=== PATIENT | male | born 1985 | race Hispanic/Latino ===

== ENCOUNTER 2019-07-12 13:11 | Emergency (ER) | payer BC, SELFPAY ==
[2019-07-12 13:22] VITALS: BP 160/96; PULSE 72; RESP 16; TEMP 36.8; O2SAT 99
--- NOTE | 2019-07-12 13:37 | ED.GENADULT ---
HPI - General Adult General Chief complaint: Upper Respiratory Infection Stated complaint: cough rt ear ringing Time Seen by Provider: 07/12/19 13:37 Source: patient and RN notes reviewed Mode of arrival: ambulatory Limitations: no limitations History of Present Illness HPI narrative: 34-year-old male presents with complaints of upper respiratory infection, facial congestion, facial tenderness, and cough, for the past 14 days. TheraFlu, DayQuil, and NyQuil without relief. No facial swelling. Dry cough/intermittent productive cough (green phlegm). Nasal congestion. No rhinorrhea. No chest pain or shortness of breath. No exacerbating factors. Denies fever or chills. Denies nausea, vomiting, and abdominal pain. Tolerating po intake well. Remains active. Complains of right ear tinnitus, fullness/clogged feeling for 14 days. TheraFlu, DayQuil, and NyQuil without relief. No difficulty hearing. Denies pain in ears, itching, injury, or drainage from ears. Denies history of cerumen impaction or ear problem and diseases. Denies fever or chills. URI symptoms as mention above. Denies nausea, vomiting, or abdominal pain. Denies dizziness, lightheadedness, fainting, or syncopal episodes. Some parts of this dictation were generated by voice recognition software and may contain typographical and/or grammatical inaccuracies. Related Data Allergies Allergy/AdvReac Type Severity Reaction Status Date / Time No Known Allergies Allergy Verified 07/12/19 13:14 Review of Systems Review of Systems: Narrative: CONSTITUTIONAL: Denies fever, chills, sweats. EYES: Denies visual changes, redness, discharge. ENT: Complains of congestion, RT ear tinnitus, facial congestion and tenderness. Denies otalgia, rhinorrhea, sore throat. CARDIOVASCULAR: Denies chest pain, palpitations, edema. RESPIRATORY: Denies dyspnea, wheezing. Complains of dry cough/intermittent productive. GASTROINTESTINAL: Denies abdominal pain, nausea, vomiting, diarrhea. GENITOURINARY: Denies dysuria, hematuria, abnormal discharge. SKIN: Denies rash or itching. MUSCULOSKELETAL: Denies acute back pain, joint pain, or myalgia. NEUROLOGIC: Denies numbness or focal weakness. PSYCHIATRIC: Denies anxiety or depression. All systems reviewed & are unremarkable except as noted in HPI and below. PMFSH Past Medical History Medical History (Updated 07/13/19 @ 00:01 by Natalie Almanza) No significant past medical history Surgical History Surgical History (Updated 07/12/19 @ 14:01 by RICKY Rojo) No significant past surgical history Family History Family History (Updated 07/12/19 @ 14:02 by RICKY Rojo) Father Diabetes mellitus Hypertension Mother Diabetes mellitus Hypertension Social History Social History (Updated 07/12/19 @ 14:02 by RICKY Rojo) Smoking status: Never smoker Second hand tobacco smoke exposure: No Substance use: never Gender identity (if verbalized by the patient): Male Comments At time of signature, agree with nurse past medical, surgical, social, and family history. There is no relevant family history pertinent to the presenting complaint. Exam Narrative: Exam Narrative: GENERAL: This is a well-nourished, well-developed patient, in no apparent distress. Talks in full sentences and ambulates with steady gait without dyspnea. HEAD: normocephalic, atraumatic. EYES: PERRL. Sclera clear/white. Vision is grossly intact. EARS: External ears normal, auditory canals clear and without drainage, LT TM normal without perforation. Unable to visualize RT TM due to large amount of cerumen, will attempt to remove see procedure section please. Hearing grossly intact. NOSE: External nose normal with no obvious nasal discharge, nares with moderate redness and enlarged turbinates, clear rhinorrhea. SINUSES: Mild tenderness upon palpation to maxillary and frontal sinuses. THROAT: Mucous membranes moist, posterior
== END 2019-07-12 14:14 | disposition home or self-care (01) ==
PROVIDERS: Emergency Provider Nurse Practitioner Family; PCP Family Medicine
DX: J00 Acute nasopharyngitis [common cold] (principal); J20.9 Acute bronchitis, unspecified; H61.21 Impacted cerumen, right ear
CPT/HCPCS: 99213; A9270; G0463

== ENCOUNTER 2022-06-01 08:27 | Emergency (ER) | payer BC, SELFPAY ==
[2022-06-01 08:36] VITALS: BP 153/104; PULSE 92; RESP 16; TEMP 37.2; O2SAT 99
--- NOTE | 2022-06-01 08:56 | ED.URI ---
HPI - URI/Sore Throat General Chief Complaint: Upper Respiratory Infection Stated Complaint: sore throat Time Seen by Provider: 06/01/22 08:56 History of Present Illness HPI Narrative: 37-year-old male presented for complaint of sinus congestion and ear pressure for one week. Took robitussin, states it made symptoms worse. Started with sore throat yesterday. Son diagnosed with strep yesterday. Not vaccinated for flu. Denies shortness of breath, wheezing, nausea, vomiting, diarrhea, fevers or chills at this time. Related Data Allergies Allergy/AdvReac Type Severity Reaction Status Date / Time No Known Allergies Allergy Verified 06/01/22 08:47 Review of Systems Review of Systems: [facility] Past Medical History Medical History COVID-19 Morbid (severe) obesity due to excess calories No significant past medical history Surgical History Surgical History No significant past surgical history Family History Family History Father Diabetes mellitus Hypertension Gastritis IBS (irritable bowel syndrome) Mother Hypertension Diabetes mellitus Sibling Hyperlipidemia COVID-19 Social History Social History Second hand tobacco smoke exposure: No Alcohol intake: current Substance use: never Substance use type: does not use 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 EYES: conjunctivae clear ENT: Mucous membranes moist. TMs pearly krishnamurthy with normal light reflex bilaterally; no tragal tenderness. Oropharynx erythematous Tonsils enlarged 3+ without exudate. No drooling, no hoarseness, no trismus, uvula midline. No tripod positioning, hot potato voice, or soft palate swelling. NECK: Supple. No lymphadenopathy CHEST: Clear to auscultation, breath sounds equal. HEART: Regular rate and rhythm. No murmur heard. SKIN: Warm, dry, no rash. NEURO: Alert and oriented x3. Course Course Emergency Course: Patient is aware of diagnosis, understands and agrees to treatment plan. Anticipatory guidance given. Patient agrees to follow-up as directed and is aware of reasons to seek care at the emergency department. Portions of this record may have been created with voice recognition software Level of Care: Express Care Visit Vital Signs Vital signs: Vital Signs Temperature 98.9 F 06/01/22 08:36 Pulse Rate 92 06/01/22 08:36 Respiratory Rate 16 06/01/22 08:36 Blood Pressure 153/104 H 06/01/22 08:36 Pulse Oximetry 99 06/01/22 08:36 Oxygen Delivery Room Air 06/01/22 08:36 Temperature 98.9 F 06/01/22 08:36 Pulse Rate 92 06/01/22 08:36 Respiratory Rate 16 06/01/22 08:36 Blood Pressure 153/104 H 06/01/22 08:36 Pulse Oximetry 99 06/01/22 08:36 Oxygen Delivery Room Air 06/01/22 08:36 MDM - URI/Sore Throat MDM Narrative Medical decision making narrative: Due to lack of resources, unable to test for rapid strep at this time. Patient verbalizes understanding. Will treat based on PE and known exposure. Advised supportive measures and signs and symptoms to go to the ER. Patient is appropriate for outpatient treatment and follow-up. Differential Diagnosis Differential diagnosis: Likely upper respiratory infection, viral infection and pharyngitis Discharge Plan Discharge Clinical Impression: Pharyngitis Patient Disposition: Home, Self-Care Condition: Stable Additional Instructions: - Take the antibiotic as directed. Fever and sore throat typically resolve within one to three days. Most patients can return to work after 12 to 24 hours of antibiotic therapy, provided you are fever free and
== END 2022-06-01 09:16 | disposition home or self-care (01) ==
PROVIDERS: Emergency Provider Nurse Practitioner Family; PCP Family Medicine
DX: J02.9 Acute pharyngitis, unspecified (principal); E66.01 Morbid (severe) obesity due to excess calories; Z68.43 Body mass index [BMI] 50.0-59.9, adult; Z86.16 Personal history of COVID-19
CPT/HCPCS: 99213; G0463

== ENCOUNTER 2022-08-22 08:48 | Emergency (ER) | payer BC, SELFPAY ==
--- NOTE | ~2022-08-22 | CT_ITS ---
EXAMINATION: CT abd pelvis lumbar wo con DATE: 08/22/2022 10:30 INDICATION: Abdomen and back pain TECHNIQUE: Computed tomography (CT) of the abdomen, pelvis and lumbar spine was performed without int ravenous contrast. The dose-length product was 1662.44 mGy-cm. Automated exposure control and iterati ve reconstruction technique were employed. COMPARISON: CT dated 01/24/2014. FINDINGS: Lung bases are unremarkable. Heart size normal. No significant pleural or pericardial effus ion. No significant vascular abnormality. No lymphadenopathy. Fatty infiltration of the liver. Gallbladder is present. The spleen, pancreas, adrenal glands and kid neys are unremarkable. Small fat-containing umbilical hernia. No free air or free fluid. Nonobstructi ve bowel pattern. No abnormal pelvic masses or fluid collections. Lumbar spine: There is mild annular disc bulging with dorsal osteophytosis at L3-4. There is mild too tral canal stenosis. There is annular disc bulging and dorsal osteophyte formation at L4-5 without si gnificant spinal stenosis. Mild annular disc bulging at L5-S1 with bilateral facet hypertrophy causin g mild bilateral neural foraminal stenosis. There is disc narrowing at L3-4 through L5-S1. No acute f racture or traumatic malalignment. IMPRESSION: 1. No acute abdominal abnormality. 2: Mild lumbar spondylosis with bilateral neural foraminal narrowing at L5-S1 and mild central canal stenosis at L3-4. 2: Hepatic steatosis. Reviewed, dictated and finalized at location A.
[2022-08-22 08:48] VITALS: BP 186/100; PULSE 85; RESP 16; TEMP 36.4; O2SAT 98
--- NOTE | 2022-08-22 09:54 | ED.BACK ---
HPI - Back Pain/Injury General Chief Complaint: Back Pain/Injury Stated Complaint: back pain Time Seen by Provider: 08/22/22 09:41 History of Present Illness HPI Narrative: 37 y/o M reports for right sided mid/low back pain x3 weeks. Pt reports the pain feels like something is there , has been worsening with time, and the pain is keeping him up at night. He reports he went to his PCP last week for eveluation of back pain, had UA checked that was normal, and sent home. Pt here today because the pain has progressively worsened, and is starting to radiate into his right abdomen. Denies paresthesias, weakness, bowel or bladder control or retention, saddle anesthesia, fever, body aches, chills, history of IV drug use, history of cancer, n/v/d, hematuria, dysuria, urinary frequency or urgency. Pt has a follow up apt with PCP next week. He reported to the ED today requesting imaging. Related Data Allergies Allergy/AdvReac Type Severity Reaction Status Date / Time No Known Allergies Allergy Verified 08/22/22 08:50 Review of Systems Review of Systems: CONSTITUTIONAL: Denies fever, chills EYES: Denies visual changes, redness, or discharge. ENT: Denies rhinorrhea, congestion, sore throat, or otalgia. CARDIOVASCULAR: Denies chest pain, palpitations, or edema. RESPIRATORY: Denies cough or dyspnea. GASTROINTESTINAL: Denies nausea, vomiting, or diarrhea. GENITOURINARY: Denies dysuria or hematuria. SKIN: Denies rash or itching. MUSCULOSKELETAL: Denies joint pain, or myalgia. NEUROLOGIC: Denies headache, numbness, dizziness, or weakness. PSYCHIATRIC: Denies anxiety or depression. [facility] Past Medical History Medical History COVID-19 Morbid (severe) obesity due to excess calories No significant past medical history Surgical History Surgical History No significant past surgical history Family History Family History Father Diabetes mellitus Hypertension Gastritis IBS (irritable bowel syndrome) Mother Hypertension Diabetes mellitus Sibling Hyperlipidemia COVID-19 Social History Social History Smoking status: Never smoker Second hand tobacco smoke exposure: No Alcohol intake: current Substance use: never Substance use type: does not use Living arrangements: with family Occupation/Education: occupation 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 HEAD: Normocephalic, atraumatic. EYES: PERRLA and EOMI. ENT: Nares clear, no rhinorrhea or epistaxis. Mucous membranes moist. Oropharynx without tonsillar hypertrophy exudate or other lesions. NECK: Supple. No adenopathy or masses. No nuchal rigidity. BACK: No midline vertebral tenderness, step offs or deformity. Point paraspinous tenderness to R low/mid back. No CVA tenderness. No palpable masses of deformities. No pain with back flexion or extension. Pain elicited with left rotation. No overlying skin changes. CHEST: Clear to auscultation. No respiratory distress. No wheezes rales or rhonchi HEART: Regular rate and rhythm. No murmur heard. Normal peripheral pulses. ABDOMEN: Soft, nontender, nondistended, normal active bowel sounds. EXTREMITIES: Normal range of motion. No edema. Strength 5/5 in BLE. Sensation intact. DP pulses 2+ bilaterally. No saddle anesthesia. SKIN: Warm, dry, no rash. NEURO: No focal deficits. Alert and oriented x3. PSYCH: Normal mood and affect. Course Vital Signs Vital signs: Vital Signs Temperature 97.5 F L 08/22/22 08:48 Pulse Rate 85 08/22/22 08:48 Respiratory Rate 16 08/22/22 08:48 Blood Pressure 186/100 H 08/22/22 08:48 Pulse Oxi
[2022-08-22] MEDS: CYCLOBENZAPRINE HCL 10 MG TABLET PO (10:42)
[2022-08-22] MEDS: KETOROLAC 30 MG/ML VIAL (*BKC) IV PUSH (10:42)
[2022-08-22 10:51] LABS: Basophils Percent Auto 0.6 % (0.2-1.2); Eosinophils Absolute Auto 0.3 K/mm3 (0-0.3); Hematocrit 41.7 % (42.0-52.0); Hemoglobin 14.4 g/dL (14.0-18.0); Immature Granulocyte Absolute 0.03 K/mm3 (0.00-0.031); Immature Granulocyte Percent A 0.5 % (0-0.5); Lymphocytes Absolute Auto 1.73 K/mm3 (0.9-3.2); Lymphocytes Percent Auto 26.7 % (18.3-44.2); Mean Corpuscular HGB Conc 34.5 g/dl (32-36); Mean Corpuscular Hemoglobin 29.5 pg (26-34); Mean Corpuscular Volume 85.5 fl (80-100); Monocytes Absolute Auto 0.5 K/mm3 (0.1-0.6); Monocytes Percent Auto 7.2 % (2.6-8.5); Platelet Count Result 274 k/mm3 (150-375); Red Blood Count 4.88 M/mm3 (4.6-6.20); Red Cell Distribution Width 11.8 % (11.5-14.5); White Blood Count 6.5 K/mm3 (4.5-10.0)
[2022-08-22 11:10] LABS: Appearance Urine Clear (Clear); Bilirubin Urine Negative (Negative); Blood Urine Negative (Negative); Color Urine Yellow (Yellow); Glucose Urine UA Negative (Negative); Ketones Urine Negative (Negative); Leukocyte Esterase Ur Negative LEU/UL (Negative); Nitrate Urine Negative (Negative); Protein Urine Negative (Negative); Specific Grav Ur 1.013 (1.001-1.035); Urobilinogen Urine 0.2 mg/dL (<2.0)
[2022-08-22 11:12] VITALS: TEMP 36.4
[2022-08-22 11:22] LABS: Alanine Aminotransferase 129 U/L (6-50); Albumin Level 4.4 g/dL (3.5-5.1); Alkaline Phosphatase 81 U/L (38-126); Anion Gap 6 mmol/L (8-16); Aspartate Amino Transferase 67 U/L (17-59); Bilirubin,Total 0.7 mg/dL (0.2-1.3); Blood Urea Nitrogen 7 mg/dL (9-20); Calcium 8.9 mg/dL (8.4-10.2); Carbon Dioxide 30 mmol/L (22-30); Chloride 103 mmol/L (98-107); Estimated CRCL calculation 199 ml/min; Estimated Glomerular Filt Rate > 60; Glucose 101 mg/dL (65-110); Potassium 3.6 mmol/L (3.4-5.0); Sodium 139 mmol/L (137-145)
[2022-08-22 11:26] LABS: Add Urine Microscopic? NO
[2022-08-22 11:55] LABS: Lipase 42 U/L (23-300)
[2022-08-22 12:14] VITALS: BP 154/95; PULSE 74; RESP 18; O2SAT 99
== END 2022-08-22 12:19 | disposition home or self-care (01) ==
PROVIDERS: Emergency Provider Physician Assistant; PCP Family Medicine
DX: M54.50 Low back pain, unspecified (principal); M47.816 Spondylosis without myelopathy or radiculopathy, lumbar region; K76.0 Fatty (change of) liver, not elsewhere classified; E66.9 Obesity, unspecified; Z68.42 Body mass index [BMI] 45.0-49.9, adult; Z86.16 Personal history of COVID-19
CPT/HCPCS: 36415; 72131; 74176; 80053; 81003; 83690; 85025; 96374; 99284; A9270; J1885

== ENCOUNTER 2022-10-03 16:14 | Emergency (ER) | payer BC, SELFPAY ==
[2022-10-03 16:35] VITALS: BP 148/86; PULSE 83; RESP 20; TEMP 36.9; O2SAT 100
[2022-10-03] MEDS: LIDOCAINE 5% PATCH 1 PATCH TRANSDERM (17:39)
[2022-10-03] MEDS: ACETAMINOPHEN 325 MG TABLET 650 MG PO (17:39)
--- NOTE | 2022-10-03 17:39 | ED.BACK ---
HPI - Back Pain/Injury General Chief Complaint: Back Pain/Injury Stated Complaint: back pain Time Seen by Provider: 10/03/22 17:09 History of Present Illness HPI Narrative: Patient is a 37-year-old male here via EMS for evaluation of back pain x1 day. Patient states that the pain came on while he went from being bent over to standing lifting heavy object yesterday. The pain remains in his right low back and occasionally will radiate down his right thigh. Worse with certain positions. He attempted a Flexeril with transient relief of his symptoms but states that his symptoms came back. He was seen here in the middle of August for similar symptoms, had a CT abdomen/pelvis that revealed lumbar spondylosis with bilateral foraminal narrowing. No incontinence or retention of bowel or bladder, saddle anesthesia. Related Data Allergies Allergy/AdvReac Type Severity Reaction Status Date / Time No Known Allergies Allergy Verified 10/03/22 17:10 Review of Systems Review of Systems: Gen.: Denies fevers or chills Eyes: Denies eye pain or visual change ENT: Denies congestion Respiratory: Denies shortness of breath or cough CV: Denies chest pain or palpitations GI: Denies abdominal pain nausea, emesis or diarrhea denies burning, urgency, frequency or hematuria Musculoskeletal: Reports back pain. Neuro: Denies numbness, tingling, weakness or focal weakness Skin: Denies rash Except as documented, all other systems reviewed and negative PMFSH Past Medical History Medical History BMI 50.0-59.9, adult COVID-19 Morbid (severe) obesity due to excess calories No significant past medical history Surgical History Surgical History No significant past surgical history Family History Family History Father Diabetes mellitus Hypertension Gastritis IBS (irritable bowel syndrome) Mother Hypertension Diabetes mellitus Sibling Hyperlipidemia COVID-19 Social History Social History Smoking status: Never smoker Second hand tobacco smoke exposure: No Alcohol intake: current Substance use: never Substance use type: does not use Living arrangements: with family Occupation/Education: occupation 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 Sitting in chair. Head: Normocephalic and atraumatic. EYES: PERRLA/EOMI, conjunctivae clear NOSE: No nasal drainage EARS: External ear normal in appearance THROAT: Oropharynx is clear. Mucous membranes are moist. NECK: Supple. No adenopathy, no masses. RESPIRATORY: Airway patent, respirations nonlabored. Clear to auscultation bilaterally, no rales, rhonchi, wheezing. CARDIOVASCULAR: 2+ DP and PT pulses bilaterally. Regular rate and rhythm without murmurs, rubs, or gallops. ABDOMINAL: Normoactive bowel sounds. Soft, nontender, nondistended. No rebound tenderness or guarding. MUSCULOSKELETAL: There is no midline tenderness to the C, T or L-spine. There is paraspinal muscle tenderness along the right SI joint. Extremities are warm and well-perfused. Moves all extremities well. No edema. NEURO: Normal speech. No focal neurologic deficits. SKIN: Skin is warm and dry. No rashes. PSYCHIATRIC: Normal affect/mood. Course Vital Signs Vital signs: Vital Signs Temperature 98.5 F 10/03/22 16:35 Pulse Rate 83 10/03/22 16:35 Respiratory Rate 20 10/03/22 16:35 Blood Pressure 148/86 H 10/03/22 16:35 Pulse Oximetry 100 10/03/22 16:35 Oxygen Delivery Room Air 10/03/22 16:35 Temperature 98.3 F 10/03/22 18:38 Pulse Rate 88 10/03/22 18:38 Respiratory Rate 16
[2022-10-03] MEDS: KETOROLAC 30 MG/ML VIAL (*BKC) IM (17:42)
[2022-10-03 18:38] VITALS: BP 144/86; PULSE 88; RESP 16; TEMP 36.8; O2SAT 100
== END 2022-10-03 18:40 | disposition home or self-care (01) ==
PROVIDERS: Emergency Provider Physician Assistant; PCP Family Medicine
DX: M54.41 Lumbago with sciatica, right side (principal)
CPT/HCPCS: 96372; 99283; A9270; J1885

== ENCOUNTER 2022-12-09 02:47 | Day surgery (SDC) | payer BC, SELFPAY ==
[2022-11-29 11:38] VITALS: BMI 49.4
[2022-12-09 07:49] VITALS: BP 140/95; PULSE 85; RESP 20; TEMP 36.4; O2SAT 99; BMI 47.8
[2022-12-09] MEDS: LACTATED RINGERS 1,000 ML 150 ML IV CONT (07:56)
--- NOTE | 2022-12-09 08:39 | PM.HPGS ---
History of Present Illness History of Present Illness Consent: Risks, benefits, and alternatives have been discussed and questions answered. Patient agrees to proceed with procedure. Chief complaint: hemorrhage of anus and rectum Narrative: Dayron Dubois is a 37 year old male Presents for rectal bleeding. Patient reports over the last 3 months has noticed bright red blood per rectum associated with bowel movements. He notes it will turn the toilet bowl red. The stool itself appears brown. Patient reports he has low back pain. He recently has been on medications to control this pain. Since that time over the last 3 months he has become somewhat constipated he strains at stool. He complains of associated rectal pain. As this is associated with bowel movements. He has had no specific treatment for his pain nor his tendency towards constipation. Review of Systems Review of Systems: Review of systems noncontributory. [facility] Past Medical History Medical History BMI 45.0-49.9, adult BMI 50.0-59.9, adult COVID-19 Morbid (severe) obesity due to excess calories No significant past medical history Surgical History Surgical History No significant past surgical history Family History Family History Father Diabetes mellitus Hypertension Gastritis IBS (irritable bowel syndrome) Mother Hypertension Diabetes mellitus Sibling Hyperlipidemia COVID-19 Social History Social History Smoking status: Never smoker Second hand tobacco smoke exposure: No Alcohol intake: never Substance use: never Substance use type: does not use Living arrangements: with family Occupation/Education: occupation 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 Gender identity (if verbalized by the patient): Male Spiritual care concerns: No Meds Home Medications and Allergies Home Medications Medication Instructions Recorded Confirmed Type hydrochlorothiazide 25 mg tablet See Rx Instructions .Route 06/13/22 11/30/22 Rx .COMPLEX #90 tabs losartan 50 mg tablet See Rx Instructions .Route 08/09/22 11/30/22 Rx .COMPLEX #90 tabs cyclobenzaprine 10 mg tablet 10 mg PO TID PRN muscle spasm #30 11/02/22 11/30/22 Rx tabs docusate sodium 100 mg capsule 100 mg PO TID 11/29/22 11/30/22 History (Dulcolax Stool Softener (docusate)) guar gum 1 packet PO BID 11/29/22 11/30/22 History tramadol 50 mg tablet 50 mg PO PRN PRN Pain 11/29/22 11/30/22 History Allergies Allergy/AdvReac Type Severity Reaction Status Date / Time No Known Allergies Allergy Verified 12/09/22 07:48 Vital Signs Vital Signs - 24 hr 12/09/22 07:49 Temperature 97.5 F L Pulse Rate 85 Respiratory Rate 20 Blood Pressure 140/95 H Pulse Oximetry 99 Oxygen Delivery Room Air Exam Narrative: Physical exam reveals patient to be alert. Vital signs stable. HEENT exam is unremarkable. Patient is anicteric. Lungs are clear to auscultation and percussion. Heart is without murmur or extra sounds. Abdomen bowel sounds present soft nontender with no hepatosplenomegaly. Digital rectal exam Reveals a posterior anal fissure.. Assessment and Plan Assessment and plan (1) BRBPR (bright red blood per rectum): Code(s): K62.5 - Hemorrhage of anus and rectum Status: Acute Assessment and Plan: Patient with rectal bleeding. Likely from hemorrhoid or fissure. Plan for stool softeners. Colonoscopy requested will be performed. Further recommendations will be given after endoscopy. (2) Pain associated with defecation: Code(s): R19.8 - Other specified symptoms and signs involving the digestive system and abdomen Status: Acute Assessment and Plan:
--- NOTE | 2022-12-09 09:04 | WPDANESEPPF ---
Anes - Initial Pre Proc Eval Procedure: Operation Date: 12/09/22 09:00 Proposed Procedures p Colonoscopy - Javier Muniz MD Date/Time: 12/09/22 09:04 Surgeon: Javier Muniz MD Pre Op Diagnosis: hemorrhage of anus and rectum Patient Data Age: 37 Gender: M Height: 1.7 m Weight: 138.5 kg Last Vital Signs Temp 97.5 F L 12/09/22 07:49 Pulse 85 12/09/22 07:49 Resp 20 12/09/22 07:49 BP 140/95 H 12/09/22 07:49 Pulse Ox 99 12/09/22 07:49 O2 Del Method Room Air 12/09/22 07:49 Allergies Allergy/AdvReac Type Severity Reaction Status Date / Time No Known Allergies Allergy Verified 12/09/22 07:48 Home Medications Medication Instructions Recorded Confirmed Type hydrochlorothiazide 25 mg tablet See Rx Instructions .Route 06/13/22 11/30/22 Rx .COMPLEX #90 tabs losartan 50 mg tablet See Rx Instructions .Route 08/09/22 11/30/22 Rx .COMPLEX #90 tabs cyclobenzaprine 10 mg tablet 10 mg PO TID PRN muscle spasm #30 11/02/22 11/30/22 Rx tabs docusate sodium 100 mg capsule 100 mg PO TID 11/29/22 11/30/22 History (Dulcolax Stool Softener (docusate)) guar gum 1 packet PO BID 11/29/22 11/30/22 History tramadol 50 mg tablet 50 mg PO PRN PRN Pain 11/29/22 11/30/22 History Patient hx anesthesia problems: none Family hx anesthesia problems: none Results Review: All pre-operative results and documents have been reviewed as part of the pre-operative evaluation. [facility] Past Medical History Medical History BMI 45.0-49.9, adult BMI 50.0-59.9, adult COVID-19 Morbid (severe) obesity due to excess calories No significant past medical history Surgical History Surgical History No significant past surgical history Family History Family History Father Diabetes mellitus Hypertension Gastritis IBS (irritable bowel syndrome) Mother Hypertension Diabetes mellitus Sibling Hyperlipidemia COVID-19 Social History Social History Smoking status: Never smoker Second hand tobacco smoke exposure: No Alcohol intake: never Substance use: never Substance use type: does not use Living arrangements: with family Occupation/Education: occupation 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[employer] Gender identity (if verbalized by the patient): Male Spiritual care concerns: No Anes - Eval Final PreProcedure Day of Procedure 12/09/22 09:04 Patient weight: morbidly obese Heart: regular rate and rhythm Lungs: clear to auscultation Airway: Mallampati scale class II Neurological: alert and oriented Last oral intake: >/= 8 hours ASA classification: III Emergent: no Anesthetic plan: proceed Anesthesia type and monitoring: general GIVS and standard monitoring Results Review: All pre-operative results and documents have been reviewed as part of the pre-operative evaluation. Informed Consent: The patient's anesthetic plan and its attendant risks and benefits were discussed with the patient/family/POA. Questions were solicited and answers provided to the satisfaction of the patient/family/POA.
[2022-12-09 10:01] VITALS: BP 139/87; PULSE 77; RESP 22; O2SAT 99
[2022-12-09 10:11] VITALS: BP 152/92; PULSE 74; RESP 18; O2SAT 99
[2022-12-09 10:21] VITALS: BP 123/85; PULSE 77; RESP 12; O2SAT 97
== END 2022-12-09 10:32 | disposition home or self-care (01) ==
PROVIDERS: PCP Family Medicine; Visit Provider Internal Medicine Gastroenterology
PROC: 0DJD8ZZ Inspection of Lower Intestinal Tract, Via Natural or Artificial Opening Endoscopic (ICD-10-PCS; CPT 45378; principal; 2022-12-09 09:00)
DX: K60.0 Acute anal fissure (principal); K64.8 Other hemorrhoids; E66.01 Morbid (severe) obesity due to excess calories; Z68.42 Body mass index [BMI] 45.0-49.9, adult
CPT/HCPCS: 45378; J2704; J7120

== ENCOUNTER 2022-12-31 20:16 | Emergency (ER) | payer BC, SELFPAY ==
--- NOTE | ~2022-12-31 | XR_ITS ---
EXAMINATION: XR chest 2V 12/31/2022 21:05 INDICATION: Chest pain and shortness of breath for one week PROCEDURE: 2 view chest COMPARISON: No prior studies for comparison. FINDINGS: The lungs are clear. The cardiomediastinal silhouette is within normal limits. There are no pleural effusions. There is no pneumothorax suspected. IMPRESSION: 1: NO ACUTE CARDIOPULMONARY DISEASE. Reviewed, dictated and finalized at location A.
--- NOTE | 2022-12-31 20:19 | ECG_ITS ---
Measurements Intervals [place] Rate: 81 P: 4 PA: 168 QRS: 22 QRSD: 113 T: 12 QT: 402 QTc: 467 Interpretive Statements SINUS RHYTHM VOLTAGE CRITERIA FOR LVH INFERIOR INFARCT, AGE INDETERMINATE ABNORMAL ECG NO PREVIOUS ECG AVAILABLE FOR COMPARISON Electronically Signed On 01-03-2023 11:19:27 CDT by Adnrea Castro D.O.
[2022-12-31 20:46] VITALS: BP 174/92; PULSE 72; RESP 15; TEMP 36.7; O2SAT 97
[2022-12-31 20:59] LABS: Basophils Percent Auto 0.4 % (0.2-1.2); Eosinophils Absolute Auto 0.2 K/mm3 (0-0.3); Eosinophils Percent Auto 1.6 % (0-4.4); Hemoglobin 14.9 g/dL (14.0-18.0); Immature Granulocyte Absolute 0.03 K/mm3 (0.00-0.031); Immature Granulocyte Percent A 0.3 % (0-0.5); Lymphocytes Absolute Auto 3.29 K/mm3 (0.9-3.2); Lymphocytes Percent Auto 34.3 % (18.3-44.2); Mean Corpuscular HGB Conc 34.7 g/dl (32-36); Mean Corpuscular Hemoglobin 29.4 pg (26-34); Mean Platelet Volume 9.4 fl (7.4-10.4); Monocytes Absolute Auto 0.5 K/mm3 (0.1-0.6); Monocytes Percent Auto 5.5 % (2.6-8.5); Neutrophils Absolute Auto 5.5 K/mm3 (1.3-6.7); Neutrophils Percent Auto 57.9 % (45.5-73.1); Platelet Count Result 274 k/mm3 (150-375); Red Blood Count 5.06 M/mm3 (4.6-6.20); Red Cell Distribution Width 11.6 % (11.5-14.5); White Blood Count 9.6 K/mm3 (4.5-10.0)
[2022-12-31 21:10] LABS: INR 0.9; Partial Thromboplastin Time 28.9 SECONDS (22.3-36.8)
[2022-12-31 21:15] LABS: Alanine Aminotransferase 147 U/L (6-50); Albumin Level 4.7 g/dL (3.5-5.1); Alkaline Phosphatase 100 U/L (38-126); Anion Gap 11 mmol/L (8-16); Aspartate Amino Transferase 66 U/L (17-59); Bilirubin,Total 0.4 mg/dL (0.2-1.3); Blood Urea Nitrogen 7 mg/dL (9-20); Calcium 9.3 mg/dL (8.4-10.2); Carbon Dioxide 27 mmol/L (22-30); Chloride 102 mmol/L (98-107); Estimated CRCL calculation 196 ml/min; Estimated Glomerular Filt Rate > 60; Glucose 118 mg/dL (65-110); Lipase 59 U/L (23-300); Potassium 2.9 mmol/L (3.4-5.0); Sodium 140 mmol/L (137-145)
[2022-12-31 21:26] LABS: Troponin I < 0.012 ng/mL (0.000-0.034)
== END 2022-12-31 23:00 | disposition left against medical advice (07) ==
PROVIDERS: Emergency Provider Emergency Medicine; PCP Family Medicine
DX: R06.02 Shortness of breath (principal)
CPT/HCPCS: 36415; 71046; 80053; 83690; 84484; 85025; 85610; 85730; 93005; 99199

== ENCOUNTER 2023-06-10 18:32 | Emergency (ER) | payer BC, SELFPAY ==
--- NOTE | 2023-06-10 18:42 | ED.EAR ---
HPI - Ear Problem General Chief complaint: Ear Stated complaint: Right Ear Irritation Source: patient Mode of arrival: ambulatory Limitations: no limitations History of Present Illness HPI Narrative: 38 y/o male presented for c/o right ear pain, onset today. Reports one week of sinus congestion. Taking Mucinex for symptoms. Denies tinnitus, dizziness, sob, wheezing, n/v/d/f/c. Complaint: ear pain Related Data Home Medications Medication Instructions Recorded Confirmed tramadol 50 mg tablet mg 06/10/23 06/10/23 Allergies Allergy/AdvReac Type Severity Reaction Status Date / Time No Known Allergies Allergy Verified 06/10/23 18:47 Review of Systems Review of Systems: CONSTITUTIONAL: Denies malaise, chills, or fever. EYES: Denies visual changes, redness, or discharge. ENT: Denies sinus pain, and sore throat. Reports ear pain, rhinorrhea, congestion CARDIOVASCULAR: Denies chest pain, palpitations, or edema. RESPIRATORY: Denies cough or dyspnea. GASTROINTESTINAL: Denies abdominal pain, nausea, vomiting, diarrhea SKIN: Denies rash or itching. MUSCULOSKELETAL: Denies myalgia. NEUROLOGIC: Denies headache. All systems reviewed & are unremarkable except as noted in HPI and below PMFSH Past Medical History Medical History BMI 45.0-49.9, adult BMI 50.0-59.9, adult COVID-19 Morbid (severe) obesity due to excess calories No significant past medical history Obesity, morbid, BMI 40.0-49.9 Surgical History Surgical History H/O colonoscopy No significant past surgical history Family History Family History Father Diabetes mellitus Hypertension Gastritis IBS (irritable bowel syndrome) Mother Hypertension Diabetes mellitus Sibling Hyperlipidemia COVID-19 Hypertension Social History Social History Smoking status: Never smoker Second hand tobacco smoke exposure: No Alcohol intake: never Substance use: never Substance use type: does not use Lack of Transportation: No Lack of Food: Never True Current Housing: I Have Housing Concerned About Future Housing: No Difficulty Paying Gas/Electric Bills: No Difficulty Paying for Meds: No Currently Unemployed: No Education: Bachelor's Degree Difficulty w/ Childcare or Family Care: No Living arrangements: with family Occupation/Education: occupation 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 There is no relevant family history pertinent to the presenting complaint Exam Narrative: GENERAL: Well-appearing EYES: PERRLA, conjunctivae clear ENT: Nares clear. Mucous membranes moist. Left TM pearly krishnamurthy with dull light reflex; right TM erythematous, bulging and intact, canal not erythematous, No drainage no tragal tenderness. Oropharynx not erythematous without lesions. NECK: Supple. No lymphadenopathy CHEST: Clear to auscultation, breath sounds equal. No wheezing, rhonchi, rales, or stridor. No respiratory distress, speaks in full sentences. HEART: Regular rate and rhythm. No murmur heard. SKIN: Warm, dry, no rash. NEURO: Alert and oriented x3. PSYCH: Normal mood and affect Course Course Emergency Course: Patient is aware of diagnosis, understands and agrees to treatment plan. Anticipatory guidance given. Patient agrees to follow-up as directed and is aware of reasons to seek care at the emergency department. Portions of this record may have been created with voice recognition software Level of Care: Express Care Visit Vital Signs Vital signs: Reviewed Medical Decision Making MDM Narr
[2023-06-10 18:45] VITALS: BP 154/101; PULSE 90; RESP 18; TEMP 36.4; O2SAT 98
[2023-06-10 18:56] VITALS: BP 145/93; PULSE 79
== END 2023-06-10 19:03 | disposition home or self-care (01) ==
PROVIDERS: Emergency Provider Nurse Practitioner Family; PCP Family Medicine
DX: H66.001 Acute suppurative otitis media without spontaneous rupture of ear drum, right ear (principal); Z79.891 Long term (current) use of opiate analgesic
CPT/HCPCS: 99213; G0463